=== PATIENT | male | born 1960 | race Caucasian/White ===

== ENCOUNTER 2016-09-03 20:00 | Emergency (ER) | payer BC ==
[2016-09-03 20:10] VITALS: TEMP 98.3; BMI 28.8
[2016-09-03] MEDS ORDERED: FOLIC ACID INJECTION - 1 MG, THIAMINE HCL 100 MG, MULTIVIT INJECTION ADULT 10 ML in SOD... IVPB ONE (22:18)
--- NOTE | 2016-09-03 22:38 | PDOC ---
History of Present Illness - General Chief Complaint: Injury Stated Complaint: FALL/INJURY Time Seen by Provider: 09/03/16 21:33 - History of Present Illness Initial Comments: 09/03/16 22:19 CHIEF COMPLAINT: fall HISTORY OF PRESENT ILLNESS: 55 yo M with hx of ETOH presents to ED s/p fall. Patient reports that his shoe slipped off the sidewalk and he landed on both his forearms "to break the fall." He reports "my friend is a nurse and she said my arm looks swollen so I should get it looked at to make sure it's not broken." Patient denies pain at this time. Patient denies any trauma to head or neck, denies any LOC. No recent travel or sick contacts. PAST MEDICAL HISTORY: Denies past medical history FAMILY HISTORY: Denies SOCIAL HISTORY: ETOH abuse. Last reported drink was 3 days ago. Denies tobacco, illicit drug use. SURGICAL HISTORY: Denies ALLERGIES: No known drug allergies REVIEW OF SYSTEMS General/Constitutional: Denies fever or chills. Denies weakness, weight change. HEENT: Denies change in vision. Denies ear pain or discharge. Denies sore throat. Cardiovascular: Denies chest pain or shortness of breath. Respiratory: Denies cough, wheezing, or hemoptysis. Gastrointestinal: Denies nausea, vomiting, diarrhea or constipation. Denies rectal bleeding. Genitourinary: Denies dysuria, frequency, or change in urination. Musculoskeletal: "cut and swelling to R arm." Denies joint or muscle swelling or pain. Denies neck or back pain. Skin and breasts: Denies rash or easy bruising. Neurologic: Denies headache, vertigo, loss of consciousness, or loss of sensation. PHYSICAL EXAM General Appearance: Well-appearing, appropriately dressed. No apparent distress , no intoxication. HEENT: EOMI, PERRLA, normal ENT inspection, normal voice, TMs normal, pharynx normal. No conjunctival pallor. No photophobia, scleral icterus. Neck: Supple. Trachea midline. No tenderness, rigidity, carotid bruit, stridor , lymphadenopathy, or thyromegaly. Respiratory/Chest: Lungs CTAB. No shortness of breath, chest tenderness, respiratory distress, accessory muscle use. No crackles, rales, rhonchi, stridor , wheezing, dullness Cardiovascular: RRR. S1, S2. No JVD, murmur, bradycardia, tachycardia. Vascular Pulses: Dorsalis-Pedis (R): 2+, Dorsalis-Pedis (L): 2+ Gastrointestinal/Abdominal: Normal bowel sounds. Abdomen soft, non-distended. No tenderness or rebound tenderness. No organomegaly, pulsatile mass, guarding , hernia, hepatomegaly, splenomegaly. Lymphatic: No adenopathy, tenderness. Musculoskeletal/Extremities: 2 cm laceration just distal to R elbow with 4cm x 3 cm abrasion and ecchymosis. Ecchymosis to right wrist, full ROM, no tenderness to R wrist. Scattered, multiple healing ecchymotic lesions to lower extremities. Normal inspection. FROM of all extremities, normal capillary refill. Pelvis Stable. No CVA tenderness. No tenderness to extremities, pedal edema, swelling, erythema or deformity. Integumentary: Appropriate color, dry, warm. 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 Fully oriented, alert. Appropriate mood/affect. Motor strength 5/5. No appreciable EOM palsy, facial droop or sensory deficit. 09/03/16 22:23 09/04/16 05:37 Past History - Past Medical History Allergies/Adverse Reactions: Allergies Allergy/AdvReac Type Severity Reaction Status Date / Time No Known Allergies Allergy Verified 09/03/16 20:08 Home Medications: Ambulatory Orders NK [No Known Home Medication] 09/03/16 - Immunization History Immunization Up to Date: Yes - Psycho/Social/Smoking Cessation Hx Suicidal Ideation: No Smoking History: Never smoked Hx Alcohol Use: Yes (last drink few days ago) Substance Use Type: Alcohol *Physical Exam - Vital Signs Last Vital Signs Temp Pulse Resp BP Pulse Ox 98.3 F 115 H 18 105/70 98 09/03/16 20:08 09/03/16 20:08 09/03/16 20:08 09/03/16 20:08 09/03/16 20:08 Procedures - Consent Consent obtained: Verbal - Laceration/Wound Repair Right Volar Arm Wound Length: to 2.5 cm Wound Explored: clean Wound's Depth, Shape: irregular, contused tissue Irrigated w/ Saline: Yes Betadine Prep: Yes Anesthesia: 1% Lidocaine Amount of Anesthetic (ccs): 5 Wound Debrided: minimal Wound Repaired With: Sutures Suture Size/Type: 4:0 Number of Sutures: 5 Sterile Dressing Applied: Yes (xeroform dressing, kerlix bandage) ED Treatment Course - LABORATORY CBC & Chemistry Diagram: 09/03/16 23:00 09/04/16 00:40 - RADIOLOGY Radiology Studies Ordered: Category Date Time Status ELBOW-RIGHT [RAD] Stat Radiology 09/03/16 22:18 Ordered FOREARM- RIGHT [RAD] Stat Radiology 09/03/16 22:18 Ordered Medical Decision Making - Medical Decision Making 09/04/16 05:37 55 yo M with hx of ETOH presents to ED s/p fall. -R forearm/elbow x-ray -Banana bag X-ray negative for fracture or dislocation Patient tremulous. 50 mg Librium given. Patient reports he does not want to stay and does not feel as if he is in withdrawal; states he wants to go home and that his friend is going to drive him home. *DC/Admit/Observation/Transfer Diagnosis at time of Disposition: Fall Qualifiers: Encounter type: initial encounter Qualified Code(s): W19.XXXA - Unspecified fall, initial encounter Laceration of right upper extremity Qualifiers: Encounter type: initial encounter Qualified Code(s): S41.111A - Laceration without foreign body of right upper arm, initial encounter - Discharge Dispostion Admit: No - Referrals Referrals: Antoine Schafer MD [Staff Physician] - - Patient Instructions Additional Instructions: Please keep the area of injury clean and dry for the next 1-2 days as discussed. Return in 10-14 days for suture removal. If you experience any fever, nausea, vomiting, or the site of injury becomes red, hot, or swollen, please return to the ER immediately.
--- NOTE | 2016-09-03 22:42 | PDOC ---
*Physical Exam - Vital Signs Last Vital Signs Temp Pulse Resp BP Pulse Ox 98.3 F 115 H 18 105/70 98 09/03/16 20:08 09/03/16 20:08 09/03/16 20:08 09/03/16 20:08 09/03/16 20:08 ED Treatment Course - LABORATORY CBC & Chemistry Diagram: 09/03/16 23:00 09/04/16 00:40 Medical Decision Making - Medical Decision Making 09/03/16 22:42 agree with care from [facility] *DC/Admit/Observation/Transfer Diagnosis at time of Disposition: Fall, Laceration of right upper extremity - Discharge Dispostion Disposition: HOME - Referrals Referrals: Antoine Schafer MD [Staff Physician] - - Patient Instructions Additional Instructions: Please keep the area of injury clean and dry for the next 1-2 days as discussed. Return in 10-14 days for suture removal. If you experience any fever, nausea, vomiting, or the site of injury becomes red, hot, or swollen, please return to the ER immediately.
[2016-09-03 23:20] LABS: BASOPHIL 0.5 % (0-2.0); EOSINOPHIL 0.2 % (0-4.5); MCH 32.7 pg (25.7-33.7); MCHC 33.7 g/dl (32.0-35.9); MEAN CELL VOLUME 96.9 fl (80-96); NEUTROPHILS 77.1 % (42.8-82.8); RDW 18.5 % (11.9-15.9); WHITE BLOOD COUNT 6.3 K/mm3 (4.0-10.0)
[2016-09-03 23:33] LABS: INR 1.29 (0.82-1.09); PROTHROMBIN TIME (PATIENT) 14.3 SEC (9.98-11.88)
[2016-09-03 23:45] LABS: PLATELET COUNT 61 K/MM3 (134-434); PLATELET ESTIMATE DECREASED (NORMAL)
[2016-09-03 23:46] LABS: HYPOCHROMIA 1+; POIKILOCYTOSIS RARE; POLYCHROMASIA OCC
[2016-09-04 01:12] LABS: ALBUMIN 3.6 g/dl (3.4-5.0); COCKROFT - GAULT 79.18; CREATININE 1.3 mg/dL (0.7-1.3); TOT PROT 7.4 g/dl (6.4-8.2)
[2016-09-04 01:13] LABS: BILIRUBIN,TOTAL 4.6 mg/dL (0.2-1.0)
[2016-09-04] MEDS ORDERED: chlordiazePOXIDE HCL 25 MG CAPSULE PO ONE (04:41)
[2016-09-04] MEDS ORDERED: chlordiazePOXIDE HCL 25 MG CAPSULE ONE (05:15)
[2016-09-04 06:16] VITALS: BP 115/76; PULSE 96
== END 2016-09-04 06:16 | disposition home or self-care (01) ==
LOC: JER 20:00
PROC: 0HQDXZZ Repair Right Lower Arm Skin, External Approach (ICD-10-PCS; principal; 2016-09-03)
PROC: 3E033GC Introduction of Other Therapeutic Substance into Peripheral Vein, Percutaneous Approach (ICD-10-PCS; 2016-09-03)
DX: S51.811A Laceration without foreign body of right forearm, initial encounter (principal); W01.0XXA Fall on same level from slipping, tripping and stumbling without subsequent striking against object, initial encounter; Y93.89 Activity, other specified; Y92.480 Sidewalk as the place of occurrence of the external cause; Y99.8 Other external cause status; F10.10 Alcohol abuse, uncomplicated
CPT/HCPCS: 36415; 73070-TC-RT; 73090-TC-RT; 80053; 80307; 85025; 85610; 99282-25

== ENCOUNTER 2016-09-04 09:10 | Inpatient (IN) | payer BC ==
[2016-09-04 10:22] VITALS: BMI 24.3
--- NOTE | 2016-09-04 13:05 | HP ---
CIWA Score - CIWA Score Nausea/Vomitin Muscle Tremors: 4-Moderate,w/Arms Extend Anxiety: 4-Mod. Anxious/Guarded Agitation: 4-Moderately Restless Paroxysmal Sweats: 3 Orientation: 0-Oriented Tacttile Disturbances: 2-Mild Itch/Numbness/Burn Auditory Disturbances: 0-None Visual Disturbances: 0-None Headache: 0-None Present CIWA-Ar Total Score: 19 Admission ROS [facility] - HPI Chief Complaint: Withdrawal sx. Allergies/Adverse Reactions: Allergies Allergy/AdvReac Type Severity Reaction Status Date / Time No Known Allergies Allergy Verified 09/04/16 11:52 History of Present Illness: 55 y/o amn with a long hx. of alcoholism is admitted for detox.Pt. has been in previous detox,he reports 7 yrs sobriety many yrs. ago. Exam Limitations: No Limitations - Ebola screening Have you traveled outside of the country in the last 21 days: No Have you had contact with anyone from an Ebola affected area: No Have you been sick,other than usual withdrawal symptoms: No Do you have a fever: No - Review of Systems Constitutional: Diaphoresis EENT: reports: No Symptoms Reported Respiratory: reports: Cough Cardiac: reports: No Symptoms Reported GI: reports: Nausea, Abdominal cramping : reports: No Symptoms Reported Musculoskeletal: reports: No Symptoms Reported Integumentary: reports: Sweating Neuro: reports: Numbness, Seizure ( twice last one in 02/2016), Tingling, Tremors Endocrine: reports: No Symptoms Reported Hematology: reports: No Symptoms Reported Psychiatric: reports: No Sypmtoms Reported Other Systems: Reviewed and Negative Patient History - Patient Medical History Hx Anemia: No Hx Asthma: No Hx Chronic Obstructive Pulmonary Disease (COPD): No Hx Cancer: No Hx Cardiac Disorders: No Hx Congestive Heart Failure: No Hx Hypertension: No Hx Hypercholesterolemia: No Hx Pacemaker: No HX Cerebrovascular Accident: No Hx Seizures: Yes (etoh seizures last 04/08) Hx Dementia: No Hx Diabetes: No Hx Gastrointestinal Disorders: No Hx Genitourinary Disorders: No Hx Sexually Transmitted Disorders: No Hx Renal Disease (ESRD): No Hx Depression: No Hx Suicide Attempt: No Hx Schizophrenia: No - Patient Surgical History Past Surgical History: No - PPD History Previous Implant?: Yes Documented Results: Negative w/o proof Implanted On Prior [facility] Admission?: No PPD to be Administered?: Yes - Smoking Cessation Smoking history: Never smoked - Substance & Tx. History Hx Alcohol Use: Yes Hx Substance Use: No Substance Use Type: Alcohol Hx Substance Use Treatment: Yes (Detox at [facility] 02/2016) - Substances Abused Alcohol Route: Oral Frequency: Daily Amount used: 2 PINTS VODKA Age of first use: 16 Date of Last Use: 09/01/16 Family Disease History - Family Disease History Family Disease History: Diabetes: Grandparent, Father (HTN,Alcohol), Heart Disease: Father Admission Physical Exam [facility] - Vital Signs Vital Signs: Vital Signs - 24 hr 09/04/16 10:20 Temperature 95.6 F L Pulse Rate 135 H Respiratory 18 Rate Blood Pressure 117/85 - Physical General Appearance: Yes: Tremorous, Irritable, Sweating, Anxious HEENTM: Yes: Within Normal Limits Respiratory: Yes: Chest Non-Tender, Lungs Clear, Normal Breath Sounds Neck: Yes: Supple Breast: Yes: Breast Exam Deferred Cardiology: Yes: Regular Rhythm, Regular Rate, S1, S2 Abdominal: Yes: Normal Bowel Sounds, Non Tender, Soft Genitourinary: Yes: Within Normal Limits Back: Yes: Within Normal Limits Musculoskeletal: Yes: Within Normal Limits Extremities: Yes: Tremors Neurological: Yes: Fully Oriented, Alert Integumentary: Yes: Diaphoresis Lymphatic: Yes: Within Normal Limits - Diagnostic (1) Alcohol dependence with uncomplicated withdrawal Current Visit: Yes Status: Acute (2) Fall Current Visit: Yes Status: Acute Qualifiers: Encounter type: initial encounter Qualified Code(s): W19.XXXA - Unspecified fall, initial encounter (3) Laceration of right upper extremity Current Visit: Yes Status: Acute Qualifiers: Encounter type: initial encounter Qualified Code(s): S41.111A - Laceration without foreign body of right upper arm, initial encounter Cleared for Admission [facility] - Detox or Rehab [facility] Level of Care: Medically Managed Detox Regimen/Protocol: Librium [facility] Breath Alcohol Content Breath Alcohol Content: 0 Urine Drug Screen - Results Drug Screen Negative: Yes
[2016-09-04] MEDS ORDERED: IBUPROFEN 400 MG TABLET (FP) PO PRN (13:12)
[2016-09-04] MEDS ORDERED: hydrOXYzine PAMOATE 50 MG CAPSULE (FP) PO PRN (13:12)
[2016-09-04] MEDS ORDERED: MENTHOL/PHENOL 1 EACH UD MM PRN (13:12)
[2016-09-04] MEDS ORDERED: LOPERAMIDE HCL 2 MG CAPSULE PO PRN (13:12)
[2016-09-04] MEDS ORDERED: MAGNESIUM HYDROX 2400MG/30ML ORAL SUSPENSION 30 ML CUP PO PRN (13:12)
[2016-09-04] MEDS ORDERED: diphenhydrAMINE HCL 50 MG CAPSULE PO PRN (13:12)
[2016-09-04] MEDS ORDERED: MAG HYDROX/AL HYDROX/SIMETH 30 ML UNIT-DOSE CUP PO PRN (13:12)
[2016-09-04] MEDS ORDERED: chlordiazePOXIDE HCL 25 MG CAPSULE PO PRN (13:12)
[2016-09-04] MEDS ORDERED: ACETAMINOPHEN 325 MG TABLET (FP) PO PRN (13:12)
[2016-09-04] MEDS ORDERED: guaiFENesin/D-METHORPHAN HB 10 ML UNIT-DOSE CUPS PO PRN (13:12)
[2016-09-04] MEDS ORDERED: MAGNESIUM CITRATE 300 ML BOTTLE PO PRN (13:12)
[2016-09-04] MEDS ORDERED: P-EPHED 60MG/TRIPROLIDI 2.5MG TABLET PO PRN (13:12)
[2016-09-04] MEDS ORDERED: chlordiazePOXIDE HCL 25 MG CAPSULE PO ONE (13:38)
[2016-09-04] MEDS: chlordiazePOXIDE HCL 25 MG CAPSULE PO SCH ×2 (17:35→22:19)
[2016-09-04 19:58] LABS: URINE APPEARANCE SLCLOUDY; URINE COLOR AMBER; URINE GLUCOSE (UA) NEGATIVE (NEGATIVE); URINE KETONE TRACE (NEGATIVE); URINE NITRITE POSITIVE (NEGATIVE); URINE UROBILINOGEN 4.0 E.U/dl E.U./dl (0.2-1.0)
[2016-09-04 20:05] LABS: URINE BLOOD 2+ (NEGATIVE); URINE LEUK ESTERASE 2+ (NEGATIVE); URINE PROTEIN 1+ (NEGATIVE)
[2016-09-04 20:08] LABS: GRANULAR CASTS 12 /lpf; URINE HYALINE CAST 6 /lpf; URINE MUCUS RARE; URINE RBC 10 /hpf (0-3); URINE WBC 274 /hpf (3-5); YEAST MANY
[2016-09-04] MEDS: THIAMINE HCL 100 MG TABLET (FP) PO SCH (22:19)
[2016-09-05] MEDS: chlordiazePOXIDE HCL 25 MG CAPSULE PO SCH ×4 (06:02→22:36)
--- NOTE | 2016-09-05 09:48 | EKG ---
Test Reason : Blood Pressure : / mmHG Vent. Rate : 096 BPM Atrial Rate : 096 BPM P-R Int : 102 ms QRS Dur : 102 ms QT Int : 400 ms P-R-T Axes : 011 029 053 degrees QTc Int : 505 ms POOR DATA QUALITY, INTERPRETATION MAY BE ADVERSELY AFFECTED SINUS RHYTHM WITH SHORT ID PROLONGED QT ABNORMAL ECG NO PREVIOUS ECGS AVAILABLE Confirmed by ALISIA BISHOP MD ([id number]) on 09/05/2016 9:47:43 AM Referred By: Confirmed By:ALISIA BISHOP MD
[2016-09-05 10:04] LABS: MCH 33.2 pg (25.7-33.7); MCHC 33.7 g/dl (32.0-35.9); MEAN CELL VOLUME 98.7 fl (80-96); MEAN PLT VOLUME 7.4 fl (7.5-11.1); PLATELET COUNT 37 K/MM3 (134-434); RDW 18.8 % (11.9-15.9); WHITE BLOOD COUNT 2.9 K/mm3 (4.0-10.0)
[2016-09-05] MEDS: PRENATAL VITAMINS W/ FOLIC ACID TABLET (FP) PO SCH (10:29)
--- NOTE | 2016-09-05 11:04 | PN ---
S CIWA - CIWA Score Nausea/Vomitin-Mild Nausea/No Vomiting Muscle Tremors: 4-Moderate,w/Arms Extend Anxiety: 3 Agitation: 3 Paroxysmal Sweats: 3 Orientation: 0-Oriented Tacttile Disturbances: 0-None Auditory Disturbances: 0-None Visual Disturbances: 0-None Headache: 0-None Present CIWA-Ar Total Score: 14 S Progress Note (SOAP) Subjective: shakes sweats interrupted sleep some body aches Objective: 09/05/16 11:03 Vital Signs Temperature 98.1 F 09/05/16 10:59 Pulse Rate 113 H 09/05/16 10:59 Respiratory Rate 20 09/05/16 10:59 Blood Pressure 120/74 09/05/16 10:59 O2 Sat by Pulse Oximetry (%) Laboratory Tests 09/04/16 09/05/16 15:00 07:00 WBC 2.9 L D RBC 2.30 L D Hgb 7.6 L D Hct 22.7 L D MCV 98.7 H MCHC 33.7 RDW 18.8 H Plt Count 37 L D MPV 7.4 L D Urine Color Elvia Urine Appearance Slcloudy Urine pH 5.0 Ur Specific [place] 1.015 Urine Protein 1+ H Urine Glucose (UA) Negative Urine Ketones Trace H Urine Blood 2+ H Urine Nitrite Positive Urine Bilirubin 2.0 Urine Urobilinogen 4.0 e.u/dl Ur Leukocyte Esterase 2+ H Urine RBC 10 Urine WBC 274 Ur Epithelial Cells Rare Hyaline Casts 6 Granular Casts 12 Urine Mucus Rare Urine Yeast Many repeat u/a repeat cbc order irons supplement awake/alert ambulating no acute distress dressing to right arm intact Assessment: 09/05/16 11:04 withdrawal sx Plan: continue detox increase fluids f/u labs
[2016-09-05 11:05] LABS: ALBUMIN 2.9 g/dl (3.4-5.0); ALK PHOS 158 U/L (45-117); ANION GAP 10 (8-16); BILIRUBIN,TOTAL 3.1 mg/dL (0.2-1.0); CALCIUM 8.6 mg/dL (8.5-10.1); CO2 28 mmol/L (21-32); CREATININE 1.2 mg/dL (0.7-1.3); GLUCOSE,RANDOM 92 mg/dL (74-106); SGOT/AST 143 U/L (15-37); SGPT/ALT 44 U/L (12-78); TOT PROT 6.1 g/dl (6.4-8.2)
[2016-09-05] MEDS: FERROUS SO4 325 MG TABLET (FP) PO SCH ×2 (13:06→17:40)
[2016-09-05] MEDS ORDERED: POTASSIUM CHLORIDE ORAL LIQUID 20 MEQ/15 ML PO SCH (13:15)
[2016-09-05] MEDS ORDERED: POTASSIUM CHLORIDE ORAL LIQUID 20 MEQ/15 ML PO ONE (13:36)
--- NOTE | 2016-09-05 14:19 | EKG ---
Test Reason : Blood Pressure : / mmHG Vent. Rate : 100 BPM Atrial Rate : 100 BPM P-R Int : 138 ms QRS Dur : 106 ms QT Int : 398 ms P-R-T Axes : 066 047 069 degrees QTc Int : 513 ms NORMAL SINUS RHYTHM PROLONGED QT ABNORMAL ECG WHEN COMPARED WITH ECG OF 04-SEP-2016 13:08, NO SIGNIFICANT CHANGE WAS FOUND Confirmed by ALISIA BISHOP MD ([id number]) on 09/05/2016 2:18:45 PM Referred By: Confirmed By:ALISIA BISHOP MD
[2016-09-05 16:58] LABS: URINE APPEARANCE CLEAR; URINE BILIRUBIN NEGATIVE (NEGATIVE); URINE BLOOD NEGATIVE (NEGATIVE); URINE GLUCOSE (UA) NEGATIVE (NEGATIVE); URINE KETONE NEGATIVE (NEGATIVE); URINE NITRITE NEGATIVE (NEGATIVE); URINE PROTEIN NEGATIVE (NEGATIVE); URINE UROBILINOGEN 4.0 E.U/dl E.U./dl (0.2-1.0)
[2016-09-05 17:19] LABS: URINE COLOR YELLOW; URINE LEUK ESTERASE 3+ (NEGATIVE)
[2016-09-05 17:23] LABS: URINE BACTERIA RARE /hpf (NONE SEEN); URINE RBC 3 /hpf (0-3); URINE WBC 86 /hpf (3-5)
[2016-09-05] MEDS: POTASSIUM CHLORIDE ORAL LIQUID 20 MEQ/15 ML PO SCH ×2 (17:42→22:36)
[2016-09-05] MEDS: THIAMINE HCL 100 MG TABLET (FP) PO SCH (22:36)
[2016-09-06] MEDS: chlordiazePOXIDE HCL 25 MG CAPSULE PO SCH ×2 (05:38→10:19)
[2016-09-06] MEDS: FERROUS SO4 325 MG TABLET (FP) PO SCH ×3 (08:04→17:53)
[2016-09-06 10:19] LABS: MCH 33.7 pg (25.7-33.7); MCHC 33.6 g/dl (32.0-35.9); MEAN CELL VOLUME 100.2 fl (80-96); PLATELET COUNT 48 K/MM3 (134-434); RDW 19.6 % (11.9-15.9); WHITE BLOOD COUNT 3.2 K/mm3 (4.0-10.0)
[2016-09-06] MEDS: PRENATAL VITAMINS W/ FOLIC ACID TABLET (FP) PO SCH (10:19)
[2016-09-06 11:40] LABS: PLATELET ESTIMATE DECREASED (NORMAL)
--- NOTE | 2016-09-06 14:14 | PN ---
S CIWA - CIWA Score Nausea/Vomitin-No Nausea/No Vomiting Muscle Tremors: 3 Anxiety: 4-Mod. Anxious/Guarded Agitation: 3 Paroxysmal Sweats: 3 Orientation: 0-Oriented Tacttile Disturbances: 0-None Auditory Disturbances: 0-None Visual Disturbances: 0-None Headache: 0-None Present CIWA-Ar Total Score: 13 S Progress Note (SOAP) Subjective: Anxiety,tremors,sweating,interrupted sleep,restless Objective: 09/06/16 14:12 Vital Signs - 8 hr 09/06/16 09/06/16 09/06/16 06:22 06:30 10:00 Temperature 98.2 F 97.9 F Pulse Rate 100 H 115 H Respiratory 18 18 18 Rate Blood Pressure 126/69 112/68 Laboratory Tests 09/04/16 09/05/16 09/05/16 15:00 07:00 07:00 WBC 2.9 L D RBC 2.30 L D Hgb 7.6 L D Hct 22.7 L D MCV 98.7 H MCHC 33.7 RDW 18.8 H Plt Count 37 L D MPV 7.4 L D Neutrophils % Lymphocytes % Monocytes % Eosinophils % Basophils % Differential Comment Platelet Estimate Sodium 138 Potassium 2.9 L* Chloride 100 Carbon Dioxide 28 Anion Gap 10 BUN 16 Creatinine 1.2 Creat Clearance w eGFR > 60 Random Glucose 92 Calcium 8.6 Total Bilirubin 3.1 H D AST 143 H ALT 44 Alkaline Phosphatase 158 H Total Protein 6.1 L Albumin 2.9 L Urine Color Elvia Urine Appearance Slcloudy Urine pH 5.0 Ur Specific [place] 1.015 Urine Protein 1+ H Urine Glucose (UA) Negative Urine Ketones Trace H Urine Blood 2+ H Urine Nitrite Positive Urine Bilirubin 2.0 Urine Urobilinogen 4.0 e.u/dl Ur Leukocyte Esterase 2+ H Urine RBC 10 Urine WBC 274 Ur Epithelial Cells Rare Amorphous Urates Urine Bacteria Hyaline Casts 6 Granular Casts 12 Urine Mucus Rare Urine Yeast Many RPR Titer 09/05/16 09/05/16 09/06/16 07:00 16:30 08:00 WBC 3.2 L RBC 2.36 L Hgb 7.9 L Hct 23.6 L MCV 100.2 H MCHC 33.6 RDW 19.6 H Plt Count 48 L D MPV 8.0 Neutrophils % 64.0 Lymphocytes % 14.0 D Monocytes % 17.0 H Eosinophils % 3.0 D Basophils % 2.0 D Differential Comment Manual diff done Platelet Estimate Decreased Sodium Potassium Chloride Carbon Dioxide Anion Gap BUN Creatinine Creat Clearance w eGFR Random Glucose Calcium Total Bilirubin AST ALT Alkaline Phosphatase Total Protein Albumin Urine Color Yellow Urine Appearance Clear Urine pH 6.0 Ur Specific [place] <= 1.005 Urine Protein Negative Urine Glucose (UA) Negative Urine Ketones Negative Urine Blood Negative Urine Nitrite Negative Urine Bilirubin Negative Urine Urobilinogen 4.0 e.u/dl Ur Leukocyte Esterase 3+ H Urine RBC 3 Urine WBC 86 Ur Epithelial Cells Amorphous Urates Moderate Urine Bacteria Rare Hyaline Casts Granular Casts Urine Mucus Urine Yeast RPR Titer Nonreactive labs noted,on k-dur & feosol Assessment: 09/06/16 14:13 Withdrawal sx. Plan: Continue detox
[2016-09-06] MEDS ORDERED: POTASSIUM CHLORIDE TABS 20 MEQ TABLET.ER (FP) PO ONE (14:30)
[2016-09-06] MEDS: chlordiazePOXIDE 5 MG CAPSULE PO SCH ×2 (17:53→22:19)
[2016-09-06] MEDS: THIAMINE HCL 100 MG TABLET (FP) PO SCH (22:19)
[2016-09-06] MEDS: POTASSIUM CHLORIDE TABS 20 MEQ TABLET.ER (FP) PO SCH (22:19)
[2016-09-07] MEDS: chlordiazePOXIDE 5 MG CAPSULE PO SCH ×2 (06:00→10:17)
[2016-09-07] MEDS: FERROUS SO4 325 MG TABLET (FP) PO SCH ×3 (08:29→16:49)
[2016-09-07] MEDS: POTASSIUM CHLORIDE TABS 20 MEQ TABLET.ER (FP) PO SCH ×2 (10:16→22:13)
[2016-09-07 10:25] LABS: MCH 33.5 pg (25.7-33.7); MCHC 33.1 g/dl (32.0-35.9); MEAN CELL VOLUME 101.4 fl (80-96); MEAN PLT VOLUME 8.2 fl (7.5-11.1); PLATELET COUNT 67 K/MM3 (134-434); RDW 20.4 % (11.9-15.9); WHITE BLOOD COUNT 3.2 K/mm3 (4.0-10.0)
[2016-09-07 10:36] LABS: ANION GAP 6 (8-16); CALCIUM 8.7 mg/dL (8.5-10.1); CO2 28 mmol/L (21-32); CREATININE 0.8 mg/dL (0.7-1.3); GLUCOSE,RANDOM 94 mg/dL (74-106); SGOT/AST 117 U/L (15-37)
[2016-09-07 10:38] LABS: ALK PHOS 149 U/L (45-117); BILIRUBIN,TOTAL 3.1 mg/dL (0.2-1.0)
[2016-09-07] MEDS: PRENATAL VITAMINS W/ FOLIC ACID TABLET (FP) PO SCH (11:31)
--- NOTE | 2016-09-07 14:11 | PN ---
[facility] Progress Note (SOAP) Subjective: Sweating,interrupted sleep,restless Objective: 09/07/16 14:09 Vital Signs - 8 hr 09/07/16 09/07/16 06:45 10:00 Temperature 98.4 F 99.9 F H Pulse Rate 100 H 96 H Respiratory 18 18 Rate Blood Pressure 114/69 109/77 Laboratory Results - last 24 hr 09/07/16 09/07/16 07:50 07:50 WBC 3.2 L RBC 2.29 L Hgb 7.7 L Hct 23.2 L MCV 101.4 H MCHC 33.1 RDW 20.4 H Plt Count 67 L D MPV 8.2 Sodium 140 Potassium 3.9 D Chloride 106 Carbon Dioxide 28 Anion Gap 6 L BUN 11 D Creatinine 0.8 D Random Glucose 94 Calcium 8.7 Total Bilirubin 3.1 H AST 117 H Alkaline Phosphatase 149 H Urine Test Results Urine Color Yellow 09/05/16 16:30 Urine Appearance Clear 09/05/16 16:30 Urine pH 6.0 (5.0-8.0) 09/05/16 16:30 Ur Specific [place] <= 1.005 (1.005-1.025) 09/05/16 16:30 Urine Protein Negative (NEGATIVE) 09/05/16 16:30 Urine Glucose (UA) Negative (NEGATIVE) 09/05/16 16:30 Urine Ketones Negative (NEGATIVE) 09/05/16 16:30 Urine Blood Negative (NEGATIVE) 09/05/16 16:30 Urine Nitrite Negative (NEGATIVE) 09/05/16 16:30 Urine Bilirubin Negative (NEGATIVE) 09/05/16 16:30 Ur Leukocyte Esterase 3+ (NEGATIVE) H 09/05/16 16:30 Urine RBC 3 /hpf (0-3) 09/05/16 16:30 Urine WBC 86 /hpf (3-5) 09/05/16 16:30 Ur Epithelial Cells Rare /hpf (FEW) 09/04/16 15:00 Urine Bacteria Rare /hpf (NONE SEEN) 09/05/16 16:30 Urine Mucus Rare 09/04/16 15:00 U/A with + nitrite,repeat with bacteria Assessment: 09/07/16 14:10 R/O UTI Plan: Continue detox Bactrim DS BID U/C&S
[2016-09-07] MEDS ORDERED: SULFAMETHOXAZOLE/TRIMETHOPRIM 800MG/160MG D.S. TABLET PO ONE (14:30)
[2016-09-07] MEDS: chlordiazePOXIDE HCL 10 MG CAPSULE PO SCH ×2 (17:03→22:12)
[2016-09-07] MEDS ORDERED: SULFAMETHOXAZOLE/TRIMETHOPRIM 800MG/160MG D.S. TABLET PO SCH (22:00)
[2016-09-07] MEDS: THIAMINE HCL 100 MG TABLET (FP) PO SCH (22:12)
[2016-09-08] MEDS: chlordiazePOXIDE HCL 10 MG CAPSULE PO SCH (06:14)
[2016-09-08] MEDS: FERROUS SO4 325 MG TABLET (FP) PO SCH (08:14)
--- NOTE | 2016-09-08 09:00 | DS ---
[facility] Detox Discharge Summary Admission Date: 09/04/16 Discharge Date: 09/08/16 - History Present History: Alcohol Dependence Additional Comments: pt known case of anemia dx'ed at [facility]. pt doesn't want to go to hospital stated he was just there for rt upper arm laceration . pt states he will f/up with anemia and suture removal care . pt not symptomatic no sob , no cp, no fatigue , no dizziness. - Physical Exam Results Vital Signs: Vital Signs Temperature 97.2 F L 09/08/16 06:00 Pulse Rate 102 H 09/08/16 06:00 Respiratory Rate 18 09/08/16 06:00 Blood Pressure 117/88 09/08/16 06:00 O2 Sat by Pulse Oximetry (%) - Treatment Hospital Course: Detox Protocol Followed, Detoxed Safely, Responded well, Discharged Condition Good - Medication Discharge Medications: Ambulatory Orders NK [No Known Home Medication] 09/03/16 - Diagnosis (1) Pancytopenia Current Visit: Yes Status: Chronic - AMA Did Patient Leave Against Medical Advice: No (pt refused to go to hospital because of anenia states he will f/up with PMD)
[2016-09-08 10:57] VITALS: BP 97/70; PULSE 115; TEMP 99.1
== END 2016-09-08 09:50 | disposition home or self-care (01) | DRG 897 ==
LOC: YASAS 09:10 → Y6N 12:34
PROVIDERS: ADMIT Internal Medicine; ATTEND Internal Medicine
PROC: HZ2ZZZZ Detoxification Services for Substance Abuse Treatment (ICD-10-PCS; principal; 2016-09-04)
DX: F10.230 Alcohol dependence with withdrawal, uncomplicated (principal); D61.818 Other pancytopenia; Z86.69 Personal history of other diseases of the nervous system and sense organs; S41.111D Laceration without foreign body of right upper arm, subsequent encounter; X19.XXXD Contact with other heat and hot substances, subsequent encounter
CPT/HCPCS: 36415; 80048; 80053; 81003; 81015; 82247; 84075; 84450; 85025; 85027; 86593; 87086; 87186; 93005; 93010